=== PATIENT | female | born 1995 | race Caucasian/White ===

== ENCOUNTER 2018-11-19 15:11 | Observation (INO) | payer BC ==
--- NOTE | 2018-11-19 15:28 | ER Document Report ---
ED Medical Screen (RME) - General Chief Complaint: Abscess Stated Complaint: POSSIBLE ABSCESS Time Seen by Provider: 11/19/18 15:26 Mode of Arrival: Ambulatory Information source: Patient Notes: This 23-year-old presents the emergency department for a abscess on her buttock possibly rectal area. Reports that she went to urgent care and they sent her here because the abscess is very near her rectum. Reports history of abscesses in the past denies MRSA. Reports abscess for the past week. I have greeted and performed a rapid initial assessment of this patient. A comprehensive ED assessment and evaluation of the patient, analysis of test results and completion of the medical decision making process will be conducted by additional ED providers. Dictation of this chart was performed using voice recognition software; therefore, there may be some unintended grammatical errors. - Related Data Allergies/Adverse Reactions: sulfamethoxazole [From Bactrim] Allergy (Mild, Verified 11/19/18 15:24) Rash trimethoprim [From Bactrim] Allergy (Mild, Verified 11/19/18 15:24) Rash Physical Exam - Vital signs Vitals: Temp Pulse Resp BP Pulse Ox 98.7 F 89 16 136/80 H 100 11/19/18 15:22 11/19/18 15:22 11/19/18 15:22 11/19/18 15:22 11/19/18 15:22 Course - Vital Signs Vital signs: Temp Pulse Resp BP Pulse Ox 98.7 F 89 16 136/80 H 100 11/19/18 15:22 11/19/18 15:22 11/19/18 15:22 11/19/18 15:22 11/19/18 15:22
--- NOTE | 2018-11-19 17:13 | ER Document Report ---
HPI - HPI Time Seen by Provider: 11/19/18 15:26 Pain Level: 3 Notes: Patient is an otherwise healthy 23-year-old female presenting to the emergency department with possible rectal abscess. Patient reports abscess has been present for 1 week. She denies any drainage from the area or fevers. She states that she went to an urgent care who reported to her that she did not feel comfortable draining the abscess due to its proximity to the rectum. Patient last ate a full meal at 1600 today. She denies any known history of MRSA. - REPRODUCTIVE LMP: Three weeks ago Reproductive: DENIES: : - DERM Skin Color: Normal, [place] Past Medical History - General Information source: Patient - Social History Smoking Status: Never Smoker Chew tobacco use (# tins/day): No Frequency of alcohol use: Social Drug Abuse: None Family History: Reviewed & Not Pertinent Patient has suicidal ideation: No Patient has homicidal ideation: No - Medical History Medical History: Negative Surgical Hx: Negative - Immunizations Immunizations up to date: Yes Vertical Provider Document - CONSTITUTIONAL Notes: PHYSICAL EXAMINATION: GENERAL: Well-appearing, well-nourished and in no acute distress. HEAD: Atraumatic, normocephalic. EYES: Pupils equal round extraocular movements intact, conjunctiva are normal. ENT: Nares patent NECK: Normal range of motion LUNGS: No respiratory distress Musculoskeletal: Normal range of motion NEUROLOGICAL: Normal speech, normal gait. PSYCH: Normal mood, normal affect. SKIN: Area of induration with fluctuance noted at rectum. Course - Re-evaluation Re-evalutation: 11/19/18 17:13 Contacted on-call surgical list, Dr. Blevins to come and evaluate the patient. 11/19/18 17:34 Dr. Blevins came to bedside, agrees to admit patient for incision and drainage tomorrow morning. Patient she will be n.p.o. after midnight tonight. - Vital Signs Vital signs: Temp Pulse Resp BP Pulse Ox 98.7 F 89 16 136/80 H 100 11/19/18 15:22 11/19/18 15:22 11/19/18 15:22 11/19/18 15:22 11/19/18 15:22 Discharge - Discharge Clinical Impression: Rectal abscess Condition: Stable Disposition: ADMITTED OBSERVATION Admitting Provider: Surgicalist Unit Admitted: Surgical Floor Referrals: EUNICE TIERNEY, COTTON BALL MACHINE TENDER-C [Primary Care Provider] - Follow up as needed
--- NOTE | 2018-11-19 17:49 | PDOC H&P ---
History of Present Illness Admission Date/PCP: CON[facility] DAY Patient complains of: pains perirectal area right side History of Present Illness: MARLEY HEBERT is a 23 year old female who started c/o pains right perirestal area x 1 week. Went to an urgent care [place] today and referred to ED because abscess site close to rectum. Denies fever/chills. Has constipation. No nausea/vomiting. Ate meal at around 4 pm today. Past Surgical History Past Surgical History: Reports: Other - Sargeant teeth extraction. I&D of axilla abscess Social History Smoking Status: Never Smoker Family History Family History: Reviewed & Not Pertinent Parental Family History Reviewed: Yes Children Family History Reviewed: No Sibling(s) Family History Reviewed.: No Medication/Allergy Allergies/Adverse Reactions: sulfamethoxazole [From Bactrim] Allergy (Mild, Verified 11/19/18 15:24) Rash trimethoprim [From Bactrim] Allergy (Mild, Verified 11/19/18 15:24) Rash Review of Systems Constitutional: PRESENT: as per HPI Gastrointestinal: PRESENT: constipation, other - rectal pains Physical Exam Vital Signs: Temp Pulse Resp BP Pulse Ox 98.7 F 89 16 136/80 H 100 11/19/18 15:22 11/19/18 15:22 11/19/18 15:22 11/19/18 15:22 11/19/18 15:22 Intake & Output 11/18/18 11/19/18 11/20/18 06:59 06:59 06:59 Weight 46.9 kg General appearance: PRESENT: mild distress Head exam: PRESENT: atraumatic Eye exam: PRESENT: conjunctiva pink Mouth exam: PRESENT: moist Neck exam: PRESENT: full ROM Respiratory exam: PRESENT: clear to auscultation jessica Cardiovascular exam: PRESENT: RRR Pulses: PRESENT: normal radial pulses Vascular exam: PRESENT: normal capillary refill GI/Abdominal exam: PRESENT: tenderness Rectal exam: PRESENT: deferred, tenderness - with swelling and redness right perirectal area Neurological exam: PRESENT: alert, oriented to person, oriented to place, oriented to time, oriented to situation Psychiatric exam: PRESENT: appropriate affect Skin exam: PRESENT: normal color, warm Assessment & Plan - Diagnosis (1) Right perirectal abscess Is this a current diagnosis for this admission?: Yes - Time Time Spent: 30 to 50 Minutes - Inpatient Certification Medical Necessity: Need For IV Fluids, Need for IV Antibiotics, Need for Surgery - Plan Summary Plan Summary: Start IV antibiotics NPO after midnight For I&D perirectal abscess tomorrow.
[2018-11-19] MEDS ORDERED: MORPHINE SULFATE 10 MG/ML INJ IV ONE (19:00)
[2018-11-19] MEDS ORDERED: PIPERACILLIN/TAZOBACTAM 3.375 GM VIAL IV ONE ×2 (19:00→23:58)
[2018-11-19] MEDS: DEXTROSE 5%-LACTATED RINGERS 1,000 ML IV PRN (19:20)
[2018-11-19] MEDS ORDERED: MORPHINE SULFATE 10 MG/ML INJ IV PRN (19:23)
[2018-11-20] MEDS ORDERED: PIPERACILLIN/TAZOBACTAM 3.375 GM VIAL IV PRN
[2018-11-20] MEDS: PIPERACILLIN SODIUM/TAZOBACTAM 3.375 GM in NORMAL SALINE 100 ML IV SCH ×5 (00:25→23:24)
[2018-11-20] MEDS: DEXTROSE 5%-LACTATED RINGERS 1,000 ML IV PRN ×2 (02:40→12:03)
[2018-11-20 04:45] LABS: ABSOLUTE EOSINOPHILS # (AUTO) 0.1 10^3/uL (0.0-0.6); ABSOLUTE LYMPHOCYTES (AUTO) 1.8 10^3/uL (0.5-4.7); BASOPHILS % (AUTO) 0.3 % (0-2); EOSINOPHILS % (AUTO) 0.8 % (0-6); HEMATOCRIT 35.2 % (36.0-47.0); HEMOGLOBIN 12.4 g/dL (12.0-15.5); LYMPHOCYTES % (AUTO) 16.3 % (13-45); MEAN CORPUSCULAR HEMOGLOBIN 28.9 pg (27.0-33.4); MEAN CORPUSCULAR HGB CONC 35.1 g/dL (32.0-36.0); MEAN CORPUSCULAR VOLUME 82 fl (80-97); MONOCYTES % (AUTO) 9.4 % (3-13); PLATELET COUNT 330 10^3/uL (150-450); RED BLOOD COUNT 4.28 10^6/uL (3.72-5.28); RED CELL DISTRIBUTION WIDTH 12.3 % (11.5-14.0); SEGMENTED NEUTROPHILS % (AUTO) 73.2 % (42-78); TOTAL CELLS COUNTED % (AUTO) 100 %; WHITE BLOOD COUNT 10.9 10^3/uL (4.0-10.5)
[2018-11-20 05:03] LABS: ANION GAP 7 (5-19); BLOOD UREA NITROGEN 6 mg/dL (7-20); CALCIUM 8.9 mg/dL (8.4-10.2); CARBON DIOXIDE 28 mmol/L (22-30); CHLORIDE 105 mmol/L (98-107); GLUCOSE 78 mg/dL (75-110); POTASSIUM 3.9 mmol/L (3.6-5.0)
[2018-11-20] MEDS ORDERED: KETOROLAC TROMETHAMINE INJ/PF 30 MG/1 ML SDV ONE (09:11)
[2018-11-20] MEDS ORDERED: KETOROLAC TROMETHAMINE INJ/PF 30 MG/1 ML SDV IV ONE (09:30)
--- NOTE | 2018-11-20 10:06 | PDOC PROGRESS REPORT ---
Subjective Progress Note for:: 11/20/18 Subjective:: Patient is often pain in her right buttock. First episode of perianal abscess. She denies drainage. Reason For Visit: ABSCESS RIGHT PERIRECTAL AREA Physical Exam Vital Signs: Temp Pulse Resp BP Pulse Ox 98.5 F 80 20 98/59 L 100 11/20/18 08:28 11/20/18 08:28 11/20/18 08:28 11/20/18 08:28 11/20/18 08:28 Intake & Output 11/19/18 11/20/18 11/21/18 06:59 06:59 06:59 Intake Total 1200 Output Total 1 Balance 1199 Weight 47.1 kg General appearance: PRESENT: no acute distress Rectal exam: PRESENT: other - Patient rolled left lateral cues position, knees to chest. The right buttock cheek medially is swollen. There is a very tender area in the posterior lateral perianal area. I did not digitalize the anal canal. Results Laboratory Results: 11/20/18 03:58 11/20/18 03:58 11/20/18 11/20/18 03:58 03:58 WBC 10.9 H RBC 4.28 Hgb 12.4 Hct 35.2 L MCV 82 MCH 28.9 MCHC 35.1 RDW 12.3 Plt Count 330 Seg Neutrophils % 73.2 Sodium 139.5 Potassium 3.9 Chloride 105 Carbon Dioxide 28 Anion Gap 7 BUN 6 L Creatinine 0.72 Est GFR ( Amer) > 60 Glucose 78 Calcium 8.9 Assessment & Plan - Diagnosis (1) Right perirectal abscess Is this a current diagnosis for this admission?: Yes Plan: Impression: Acute, first episode, needs operative treatment Recommend patient: 1. Explained the pathoanatomy of daysi-anal abscess, possible fistula in anal; also discussed management strategies including primary drainage, drainage with seton, management of seton, and the possibility of additional operations. 2. I recommend we proceed with examination under anesthesia, units of abscess, possible counterincision with loop drain, possible seton placement, general anesthesia, 45 minutes. Risk of the operation include bleeding, infection, need for additional surgery, loss of stool and gas continence. She expresses her understanding and agrees to proceed.
[2018-11-20] MEDS ORDERED: BUPIVACAINE HCL 0.25 % INJ/PF (2.5 MG/1 ML) 30 ML VIAL ONE (12:24)
[2018-11-20] MEDS ORDERED: FENTANYL CITRATE INJ/PF 100 MCG/2 ML AMPUL ONE ×3 (14:38→16:18)
[2018-11-20] MEDS ORDERED: PROPOFOL INJ 200 MG/20 ML VIAL IV ONE (14:38)
[2018-11-20] MEDS ORDERED: SUCCINYLCHOLINE CHLORIDE INJ 200 MG/10 ML VIAL ONE (14:49)
[2018-11-20] MEDS ORDERED: ONDANSETRON HCL INJ/PF 4 MG/2 ML SDV ONE (15:12)
[2018-11-20] MEDS ORDERED: MIDAZOLAM 2 MG/2 ML INJ ONE (15:12)
[2018-11-20] MEDS ORDERED: DEXAMETHASONE SOD PHOSPHATE INJ 4 MG/1 ML VIAL ONE (15:12)
[2018-11-20] MEDS ORDERED: BUPIVACAINE HCL 0.25 % INJ/PF (2.5 MG/1 ML) 30 ML VIAL INJ ONE ×2 (15:49)
[2018-11-20] MEDS ORDERED: PROMETHAZINE HCL INJ 25 MG/1 ML VIAL IV PRN ×2 (15:52)
[2018-11-20] MEDS ORDERED: ONDANSETRON HCL INJ/PF 4 MG/2 ML SDV IV PRN (15:52)
[2018-11-20] MEDS ORDERED: DIPHENHYDRAMINE HCL 50 MG/ML VIAL IV PRN (15:52)
[2018-11-20] MEDS ORDERED: MEPERIDINE HCL/PF INJ 25 MG/1 ML DISP.SYRIN IV PRN (15:52)
[2018-11-20] MEDS ORDERED: MORPHINE SULFATE 10 MG/ML INJ IV PRN (15:52)
[2018-11-20] MEDS ORDERED: FENTANYL CITRATE INJ/PF 100 MCG/2 ML AMPUL IV PRN ×3 (15:52)
--- NOTE | 2018-11-20 16:17 | Operative Report ---
Operative Report DATE OF SURGERY: 11/20/18 PREOPERATIVE DIAGNOSIS: Perianal abscess POSTOPERATIVE DIAGNOSIS: Same with fistula in ano. Vaginitis OPERATION: 1. Examination under anesthesia. 2. Drainage of perianal abscess. 3. Installation of rubber av loop in fistula-in -ano right posterior lateral position. 4. Culture swabs of perianal abscess and vagina SURGEON: JOSE E LOUISE ANESTHESIA: GA TISSUE REMOVED OR ALTERED: pus COMPLICATIONS: none ESTIMATED BLOOD LOSS: scant INTRAOPERATIVE FINDINGS: see below PROCEDURE: Patient was taken to the preop holding her to the main operating room where general anesthesia was induced. She was placed in the prone jackknife position buttocks spread. The buttock was prepped and draped in sterile fashion. Surgical plan and surgical timeout were conducted. Findings were significant for foul-smelling whitish discharge from the vagina. There was no palpable needle, or vaginal wall pathology. There is no evidence of cellulitis. A vaginal swab was obtained for Gram stain culture and sensitivity. The perianal tissue was inspected. In the right posterior lateral position, oriented radially was a swelling approximately 2 x 3 cm. Adjacent to this was a intact buttock without evidence of the cellulitis, or swelling. The skin in the perianal tissue was anesthetized with 1% plain lidocaine. A radial incision was made with a number 10 blade, immediately getting into a pocket of pus approximately 12 cc total volume. Pus was cultured and sent for Gram stain, sensitivity. Cavity was irrigated out vigorously. There was no tracking of the abscess cavity posteriorly or laterally. However it did track proximally up along anal canal. I used a probe and insinuated through the tract, and it opened immediately up into the anal canal just about at the dentate line. By palpation, it appeared that the fistula in anal was going through a portion but not all the way around the external anal sphincter. Therefore I placed a loop rubber av loop and tied it no loose not. At This point we felt the operation was complete. Sponge and needle counts correct. A small piece of gauze was placed in the abscess cavity in the posterior perianal position. Patient tolerated the procedure well, was extubated, taken recovery in stable condition
[2018-11-20] MEDS: DOCUSATE SODIUM 100 MG CAPSULE PO SCH (19:26)
[2018-11-20] MEDS: KETOROLAC TROMETHAMINE 10 MG TABLET PO PRN (20:45)
[2018-11-20] MEDS: ACETAMINOPHEN WITH CODEINE #3 TABLET PO PRN (23:47)
[2018-11-21] MEDS: DEXTROSE 5%-LACTATED RINGERS 1,000 ML IV PRN ×2 (00:51→07:54)
[2018-11-21] MEDS: PIPERACILLIN SODIUM/TAZOBACTAM 3.375 GM in NORMAL SALINE 100 ML IV SCH ×2 (06:08→11:29)
[2018-11-21] MEDS: KETOROLAC TROMETHAMINE 10 MG TABLET PO PRN (06:08)
[2018-11-21] MEDS: ACETAMINOPHEN WITH CODEINE #3 TABLET PO PRN (09:55)
[2018-11-21] MEDS: DOCUSATE SODIUM 100 MG CAPSULE PO SCH (09:55)
--- NOTE | 2018-11-21 10:21 | Discharge Summary ---
General - Admit/Disc Date/PCP Admission Date/Primary Care Provider: 11/19/18 18:21 AYE DAY-C Discharge Date: 11/21/18 - Discharge Diagnosis Final Diagnosis: Perirectal abscess with anal fistula - Additional Information Resuscitation Status: Full Code Home Medications: Ethinyl Estradiol/Drospirenone [Alanna 28 Tablet] 1 each PO DAILY 11/20/18 Methylphenidate HCl 20 mg PO DAILY@1400 11/20/18 Methylphenidate HCl [Concerta] 18 mg PO DAILY 11/20/18 History of Present Illness History of Present Illness: MARLEY HEBERT is a 23 year old female who started c/o pains right perirestal area x 1 week. Went to an urgent care [place] today and referred to ED because abscess site close to rectum. Denies fever/chills. Has constipation. No nausea/vomiting. Ate meal at around 4 pm today. Hospital Course Hospital Course: Underwenr Incision and drainage of perirectal abscess with placement of Seton by Dr Yanez on 11/20/18. Wound area checkek on 11/21/18. The dressing was removed and no bleeding noted. Seton left in place. Told patient to leave seton on until seen by Dr Yanez in the clinic in 2 weeks Discharge 11/21/18 with prescription for Toradol. Physical Exam Vital Signs: Temp Pulse Resp BP Pulse Ox 98.2 F 82 16 114/64 100 11/20/18 22:53 11/20/18 22:53 11/20/18 22:53 11/20/18 22:53 11/20/18 22:53 Intake & Output 11/20/18 11/21/18 11/22/18 06:59 06:59 06:59 Intake Total 1200 3300 1000 Output Total 1 203 Balance 1199 3097 1000 Weight 47.1 kg 48.5 kg Results Laboratory Results: 11/20/18 03:58 11/20/18 03:58 Plan Discharge Plan: Discharge on po Toradol prn for pain. Advised to do hot sitz baths or shower to let water through the abscess site daily or 2x/day. RTW note in about 3-5 days Time Spent: Less than 30 Minutes
[2018-11-21 13:56] VITALS: BP 94/43
== END 2018-11-21 13:44 | disposition home or self-care (01) ==
LOC: ER 15:11 → EH 18:21 → 5 19:52
PROVIDERS: ADMIT Surgery; ATTEND Surgery
PROC: 0D9P00Z Drainage of Rectum with Drainage Device, Open Approach (ICD-10-PCS; principal; 2018-11-20 13:30)
DX: K61.1 Rectal abscess (principal); K59.00 Constipation, unspecified; N76.0 Acute vaginitis; Z88.1 Allergy status to other antibiotic agents
CPT/HCPCS: 46060; 99284; 96365; 36415; 87070; 87205; 82962; 85025; 81025; 87075; 87077; 80048; 87186; 00902; G0378 ×4; J2250; J1100; J3010; J1885; J2270 ×2; J0330; J2405; J7121 ×3; J7050 ×2; J3490 ×2; J2704; J2543 ×3; 902

== ENCOUNTER 2019-01-18 07:51 | Day surgery (SDC) | payer BC ==
[~2019-01-18 07:51] MED LIST: PROPOFOL INJ 200 MG/20 ML VIAL IV ONE
[2019-01-18] MEDS ORDERED: LIDOCAINE 2% JELLY 5 ML TUBE ONE (10:00)
[2019-01-18] MEDS ORDERED: PROPOFOL INJ 200 MG/20 ML VIAL IV ONE ×3 (10:03→11:38)
--- NOTE | 2019-01-18 10:29 | Discharge Summary ---
Discharge Summary (SDC) - Discharge Final Diagnosis: Perianal abscess status post drainage and seton placement; family history of Crohn's disease Date of Surgery: 01/18/19 Discharge Date: 01/18/19 Condition: Good Treatment or Instructions: [facility] [address] [id number] POST ENDOSCOPY DISCHARGE INSTRUCTIONS 1. Diet: Start clear liquids that a regular diet as tolerated. 2. Resume all preoperative medications. All oral anticoagulants and aspirins can be resumed 24 hours after procedure. 3. If a polypectomy was performed some bleeding per rectum may occur. This should stop within 3 days. If not, please contact the office. 4. If you had a colonoscopy you may experience some bloating and delayed return of normal bowel function for several days, your regular bowel movement pattern should resume within a week. 5. Please contact [facility] at to make an appointment with Dr. Yanez for 1 to 3 weeks following procedure. 6. If you have any questions or concerns regarding your care,treatment plan or follow up, please contact our office. 7. Per clinical guidelines we recommend you undergo a repeat colonoscopy in 10 years, or sooner depending upon pathology report. Referrals: EUNICE TIERNEY, CHIEF COOK-C [Primary Care Provider] - Discharge Diet: As Tolerated Discharge Activity: Activity As Tolerated Home Care Assistance: None Needed Report the Following to Your Physician Immediately: Shortness of Breath, Increase in Pain, Fever over 101 Degrees
--- NOTE | 2019-01-18 10:37 | Operative Report ---
Operative Report DATE OF SURGERY: 01/18/19 PREOPERATIVE DIAGNOSIS: 1. History of perianal abscess drainage with seton angel ian. 2. Family history of Crohn's disease POSTOPERATIVE DIAGNOSIS: Same. 1. Normal esophagogastroduodenoscopy. 2. Normal colonoscopy. 3. External hemorrhoids, small and collapsed. 4. Intact anal canal seton OPERATION: 1. Esophagogastroduodenoscopy. 2. Random biopsy of gastric duodenum. 3. Total colonoscopy to cecum. 4. Random biopsies of the right and left colon. 5. Tightening of anal canal seton SURGEON: JOSE E LOUISE ANESTHESIA: LMAC COMPLICATIONS: None INTRAOPERATIVE FINDINGS: see below PROCEDURE: Patient was taken from the preop holding area of the fifth floor to the endoscopy suite where LMAC anesthesia was induced. She was placed in the left lateral, semi-decubitus position. Surgical plan surgical timeout conducted. The flexible adult upper endoscope was advanced to the oropharynx, down the esophagus, through the stomach into the duodenum. Patient tolerated the procedure well. There were no pathologic findings The first second portion of the duodenum showed no pathologic findings. A random biopsy of the duodenum was performed with a cold forceps device and sent to pathology. The stomach was essentially unremarkable. No biopsies were performed. There is no evidence of tumor stricture bleeding or polyp. The scope was brought back through the GE junction. The esophagus was unremarkable. No pathologic findings were done to 5. The scope was withdrawn the patient oropharynx. She tolerated procedure well. Instrumentation was set up for colonoscopy. Patient was placed in left lateral cubitus position. Seton was identified in the mid posterior position, intact, with no evidence of residual abscess. External hemorrhoids identified which were small and collapsed. A perianal examination was performed. There was no visible or palpable anorectal pathology. Sphincter tone was felt to be normal. The flexible adult colonoscope was advanced through the anal rectal canal, all the way to the cecum. Visualization of the cecum was achieved by demonstration of the ileocecal valve, the appendiceal orifice and transillumination of the anterior abdominal wall. This was an excellent study on the well-prepped bowel. The colonoscope was withdrawn slowly and methodically checked and the mucosa carefully. There was no evidence of tumor, stricture, bleeding or polyp. Random biopsies with a cold forceps device were used to obtain mucosal biopsy of the ascending colon, and the descending colon. there was no evidence of diverticuloses. The scope was slowly withdrawn through the anal rectal canal. Complete visualization of the rectum was achieved with photodocumentation. The scope was withdrawn to the patient's anus. We placed 2% lidocaine jelly in anal canal. The scope was retroflexed in the anorectal canal visualizing the seton with its entry point just distal to the dentate line. The scope was withdrawn from the patient's anus. We now tightened the seton a significant amount and secured it into the tightened position with a 0 silk suture. The patient tolerated the procedure well and was taken to the recovery area in stable condition. Per surveillance guidelines, patient will be an appropriate candidate for follow-up colonoscopy in [10] years.
[2019-01-18 11:37] VITALS: BP 106/64
== END 2019-01-18 11:30 | disposition home or self-care (01) ==
LOC: END 07:51
PROVIDERS: ATTEND Surgery
DX: K61.0 Anal abscess (principal); K44.9 Diaphragmatic hernia without obstruction or gangrene; Z83.79 Family history of other diseases of the digestive system; E16.2 Hypoglycemia, unspecified; Z09 Encounter for follow-up examination after completed treatment for conditions other than malignant neoplasm; Z79.899 Other long term (current) drug therapy; M32.9 Systemic lupus erythematosus, unspecified
CPT/HCPCS: 43239; 45380; 88305 ×2; 00813; J2704; 813

== ENCOUNTER 2019-04-11 05:33 | Day surgery (SDC) | payer BC ==
[2019-04-04 09:59] LABS: HEMATOCRIT 40.2 % (36.0-47.0); HEMOGLOBIN 14.2 g/dL (12.0-15.5); MEAN CORPUSCULAR HEMOGLOBIN 29.4 pg (27.0-33.4); MEAN CORPUSCULAR HGB CONC 35.2 g/dL (32.0-36.0); MEAN CORPUSCULAR VOLUME 84 fl (80-97); PLATELET COUNT 304 10^3/uL (150-450); RED BLOOD COUNT 4.81 10^6/uL (3.72-5.28); RED CELL DISTRIBUTION WIDTH 12.6 % (11.5-14.0); WHITE BLOOD COUNT 9.8 10^3/uL (4.0-10.5)
[~2019-04-11 05:33] MED LIST changes: +LACTATED RINGERS 1000 ML IV PRN; +LIDOCAINE 0.5% INJ-PF (5 MG/ML) 50 ML SDV SUBCUT PRN; -PROPOFOL INJ 200 MG/20 ML VIAL IV ONE
[2019-04-11] MEDS ORDERED: PROPOFOL INJ 200 MG/20 ML VIAL IV ONE (07:03)
[2019-04-11] MEDS ORDERED: FENTANYL CITRATE INJ/PF 100 MCG/2 ML AMPUL ONE (07:03)
[2019-04-11] MEDS ORDERED: ONDANSETRON HCL INJ/PF 4 MG/2 ML SDV ONE (07:03)
[2019-04-11] MEDS ORDERED: MIDAZOLAM 2 MG/2 ML INJ ONE (07:03)
[2019-04-11] MEDS ORDERED: LIDOCAINE 2% INJ (20 MG/ML) 20 ML MDV ONE (07:05)
[2019-04-11] MEDS ORDERED: LIDOCAINE 1%/EPINEPHRINE INJ 20 ML VIAL ONE (07:12)
[2019-04-11] MEDS ORDERED: LIDOCAINE 2% JELLY 30 ML TUBE ONE (07:13)
[2019-04-11] MEDS ORDERED: BUPIVACAINE HCL 0.25 % INJ/PF (2.5 MG/1 ML) 30 ML VIAL ONE (07:21)
[2019-04-11] MEDS ORDERED: BUPIVACAINE HCL 0.25 % INJ/PF (2.5 MG/1 ML) 30 ML VIAL INJ ONE (07:44)
[2019-04-11] MEDS ORDERED: OXYCODONE-ACETAMINOPHEN 5-325 MG TABLET PO PRN ×2 (07:52)
[2019-04-11] MEDS ORDERED: FENTANYL CITRATE INJ/PF 100 MCG/2 ML AMPUL IV PRN ×3 (07:52)
[2019-04-11] MEDS ORDERED: ONDANSETRON HCL INJ/PF 4 MG/2 ML SDV IV PRN (07:52)
[2019-04-11] MEDS ORDERED: DIPHENHYDRAMINE HCL 50 MG/ML VIAL IV PRN (07:52)
[2019-04-11] MEDS ORDERED: MEPERIDINE HCL/PF INJ 25 MG/1 ML DISP.SYRIN IV PRN (07:52)
[2019-04-11] MEDS ORDERED: PROMETHAZINE HCL INJ 25 MG/1 ML VIAL IV PRN ×2 (07:52)
[2019-04-11] MEDS ORDERED: KETOROLAC TROMETHAMINE 60 MG/2 ML SDV ONE (08:14)
--- NOTE | 2019-04-11 08:20 | Discharge Summary ---
Discharge Summary (SDC) - Discharge Final Diagnosis: Fistula in ano, with retained seton Date of Surgery: 04/11/19 Discharge Date: 04/11/19 Condition: Good Treatment or Instructions: Patient to continue sits baths, Tylenol, Motrin and Toradol PRN pain, alternating. Educated patient she may have some anal canal bleeding. Follow-up with Dr. Yanez in 2 weeks at [facility]. Referrals: EUNICE TIERNEY, PAPER GUILLOTINE OPERATOR-C [Primary Care Provider] - Discharge Diet: As Tolerated Discharge Activity: Activity As Tolerated Home Care Assistance: None Needed Report the Following to Your Physician Immediately: Shortness of Breath, Increase in Pain, Fever over 101 Degrees
--- NOTE | 2019-04-11 08:37 | Operative Report ---
Operative Report DATE OF SURGERY: 04/11/19 PREOPERATIVE DIAGNOSIS: 1. Fistula in ano right posterior lateral position. 2. Right posterior lateral seton POSTOPERATIVE DIAGNOSIS: Same OPERATION: 1. Examination under anesthesia. 2. Removal of right posterior lateral seton. 3. Division of skin, with partial external sphincterotomy (fistulotomy) SURGEON: JOSE E LOUISE ANESTHESIA: LMAC TISSUE REMOVED OR ALTERED: None COMPLICATIONS: None ESTIMATED BLOOD LOSS: Scant INTRAOPERATIVE FINDINGS: See below PROCEDURE: Patient was taken from the preop holding to the main operating where LMAC anesthesia was induced. She was placed in the prone jackknife position, buttocks were taped widely, and the perianal tissue prepped and draped sterile fashion. Surgical timeout conducted. Examination of the anal fissure revealed small external hemorrhoids in the right lateral position left lateral position. In the right posterior lateral position was the retained, looped rubber seton, with minimal tension on the underlying tissue bridge. We anesthetized the perianal tissue with 1/4% Marcaine approximately 15 cc. I was easily able to introduce 1 then 2 fingers into the anal canal. I used a medium Hill-Martinez retractor for exposure. The tissue bridge within the loop of the seton was approximately 0.5 cm. By palpation it appeared to involve a portion of the external sphincter. Given this patient's history of high sensitivity to manipulation of tissue around her anus, and the fact that the seton had been in since last year, like to proceed with dividing the tissue bridge. This was performed with electrocautery. The amount of external sphincter fibers divided was minimal. Once the division was accomplished, I cauterized the fistula tract, effectively accomplishing a fistulotomy. Small bleeders were cauterized with electrocautery. The remainder of the anal canal appeared unremarkable. A rolled Gelfoam plug was inserted into the anal canal. Patient tolerated procedure well. She was returned to the supine position, taken to recovery in stable condition.
[2019-04-11] MEDS ORDERED: OXYCODONE-ACETAMINOPHEN 5-325 MG TABLET ONE (09:04)
[2019-04-11 10:49] VITALS: BP 109/72
== END 2019-04-11 10:15 | disposition home or self-care (01) ==
LOC: OROUT 05:33
PROVIDERS: ATTEND Surgery
DX: K61.0 Anal abscess (principal); Z88.3 Allergy status to other anti-infective agents; E16.2 Hypoglycemia, unspecified; M32.9 Systemic lupus erythematosus, unspecified; Z79.899 Other long term (current) drug therapy; K60.3 Anal fistula
CPT/HCPCS: 36415; 82962; 85027; 81025; 00902; 46030; J2250; J3490; J1885; J3010; J2405; J2704; 902